=== PATIENT | male | born 1985 | race Hispanic/Latino ===

== ENCOUNTER 2022-05-27 16:46 | Emergency (ER) | payer OTHER ==
[~2022-05-27] VITALS: Ht 180.3 cm; Wt 89.8 kg
[2022-05-27] MEDS ORDERED: 0.9%NACL 1000ML 1,000 ML IV ONE (18:00)
[2022-05-27] MEDS ORDERED: KETOROLAC 15MG/ML VIAL (15MG/ML) IV ONE (18:00)
[2022-05-27] MEDS ORDERED: NAPR500T6 PO (20:08)
[2022-05-27] MEDS ORDERED: AMOX1TAB16 PO (20:08)
[2022-05-27 20:18] VITALS: BP 131/84
== END 2022-05-27 20:20 | disposition home or self-care (01) ==
LOC: EDH 16:46
DX: S02.652A Fracture of angle of left mandible, initial encounter for closed fracture (principal); W50.0XXA Accidental hit or strike by another person, initial encounter; Y93.89 Activity, other specified; Y92.89 Other specified places as the place of occurrence of the external cause; Y99.8 Other external cause status
CPT/HCPCS: 99285; 70450; 96374; 96361; 72125; 70486; J7030; J1885